=== PATIENT | female | born 1990 | race Caucasian/White ===

== ENCOUNTER 2017-05-21 19:04 | Emergency (ER) | payer MEDICAID ==
[~2017-05-21] VITALS: Ht 152.4 cm; Wt 65.5 kg
[~2017-05-21 19:04] MED LIST: BACTDS PO; PHEN-537 PO
[2017-05-21 19:09] VITALS: Ht 152.4 cm; Wt 65.5 kg
[2017-05-21] MEDS ORDERED: FLUORESCEIN STRIP RIGHT EYE ONE (20:30)
[2017-05-21] MEDS ORDERED: HYDROCODONE/APAP (5/325) TAB PO ONE (20:30)
[2017-05-21] MEDS ORDERED: TETRACAINE 0.5% 4 ML OPH RIGHT EYE SCH (20:30)
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
== END 2017-05-22 01:13 | disposition left against medical advice (07) ==
LOC: FTE 19:04 → E/R 05-22 01:13
DX: S05.91XA Unspecified injury of right eye and orbit, initial encounter (principal); X58.XXXA Exposure to other specified factors, initial encounter; Y92.9 Unspecified place or not applicable
CPT/HCPCS: 70480; Z7502; Z7610

== ENCOUNTER 2018-02-05 17:43 | Emergency (ER) | END 2018-02-05 22:36 | disposition home or self-care (01) ==

== ENCOUNTER 2018-06-01 10:05 | Emergency (ER) | END 2018-06-01 12:30 | disposition home or self-care (01) ==

== ENCOUNTER 2018-06-08 14:40 | Day surgery (SDC) | END 2018-06-08 18:40 | disposition home or self-care (01) ==

== ENCOUNTER 2019-02-03 14:15 | Emergency (ER) | payer OTHER ==
[~2019-02-03] VITALS: Ht 165.1 cm; Wt 71.4 kg
[~2019-02-03 14:15] MED LIST changes: -BACTDS PO; -PHEN-537 PO; +PREN-17 PO
[2019-02-03 14:18] VITALS: BP 112/56; PULSE 105; RESP 20; Ht 165.1 cm; Wt 71.4 kg
[2019-02-03] MEDS ORDERED: BEN25 PO (15:30)
[2019-02-03] MEDS ORDERED: ACET500C5 PO (15:30)
--- NOTE | 2019-02-03 15:37 | ERD ---
ER Documentation Chief Complaint Chief Complaint Complains of a cough x 3 days HPI 28-year-old female patient with no significant past medical history presents ED complaining of cough that started 3 days ago. She reports that she is currently 12 weeks . States that she started developing dry cough and rhinorrhea that started 3 days ago. Patient is up-to-date with her vaccinations. Denies any vaginal bleeding, vaginal discharge, urgency, frequency, hematuria, fever abdominal pain. ROS All systems reviewed and are negative except as per history of present illness. Medications Home Meds Active Scripts Acetaminophen* (Tylophen*) 500 Mg Capsule, 1 CAP PO Q6H PRN for PAIN AND OR ELEVATED TEMP, #20 CAP Prov:THAO DEWEY PA-C 02/03/19 Diphenhydramine Hcl* (Benadryl*) 25 Mg Cap, 25 MG PO Q6, #30 CAP Prov:THAO DEWEY PA-C 02/03/19 Reported Medications Vit No.78/Iron/FA (Prenatabs FA Tablet) 1 Each Tablet, 1 EACH PO DAILY, TAB 06/08/18 Allergies Allergies: Coded Allergies: No Known Allergy (Unverified , 06/08/18) PMhx/Soc History of Surgery: Yes (csection, d&C, apendectomy) Anesthesia Reaction: No Hx Neurological Disorder: No Hx Respiratory Disorders: No Hx Cardiac Disorders: No Hx Psychiatric Problems: No Hx Miscellaneous Medical Probl: No Hx Alcohol Use: No Hx Substance Use: No Hx Tobacco Use: No Smoking Status: Never smoker FmHx Family History: No diabetes, No coronary disease Physical Exam Vitals Vital Signs Date Temp Pulse Resp B/P (MAP) Pulse Ox O2 O2 Flow FiO2 Time Delivery Rate 02/03/19 98.8 105 20 112/56 97 14:18 (74) Physical Exam Const: Gam-xsn-pxkpumwwm, well-nourished. In no acute distress. Head: Atraumatic, normocephalic Eyes: Normal Conjunctiva without injection. No purulent discharge. PERRL. EOMI ENT: Normal external ear. Ear canal without erythema. Tympanic membrane pearly babin without effusion or bulging. Nasal canal clear with normal turbinates. Moist oropharynx without tonsillar exudates. Non-erythematous pharynx. Uvula midline. No drooling. No trismus. Neck: Full range of motion. No meningismus. No cervical lymphadenopathy. Resp: Clear to auscultation bilaterally. No wheezing, rhonchi, rales, or crackles. No accessory muscle use. No retractions. Cardio: Regular rate and rhythm. No murmurs, rubs or gallops. Abd: Soft, non tender, non distended. Normal bowel sounds. No palpable masses. No rebound tenderness. No guarding. Skin: No petechiae or rashes Back: No midline tenderness. No CVA tenderness. Ext: No cyanosis, or edema. Neur: Awake and alert. Psych: Normal Mood and Affect Procedures/MDM 28-year-old female patient with no significant past medical history presents to ED complaining of cough that started 3 days ago. Patient is afebrile and nontoxic-appearing. This patient presents to the ED with symptoms consistent with a viral acute upper respiratory infection. Patient's physical exam include lungs which were clear to auscultation and a normal pulse oximetry. There is a low suspicion for pneumonia, pneumothorax, mononucleosis, pulmonary embolism, epiglottitis, otitis media, otitis externa, viral/strep pharyngitis, sinusitis, myocarditis, pericarditis, endocarditis, peritonsillar abscess, mastoiditis, retropharyngeal abscess, meningitis, sepsis, acute abdomen or other emergent conditions. Fluids, rest, and symptomatic treatment are recommended for the management of patient's symptoms. Diagnosis: Cough Discharge medications: Tylenol, Benadryl Follow up with primary care physician in 1-2 days. Instructed patient to return to the ED sooner for any worsening symptoms. Patient's questions were answered. Patient is hemodynamically stable. Patient understood and agreed with discharge plan. Patient discharged stable. Disclaimer: Inadvertent spelling and grammatical errors are likely due to EHR/dictation software use and do not reflect on the overall quality of patient care. Also, please note that the electronic time recorded on this note does not necessarily reflect the actual time of the patient encounter. Departure Diagnosis: Primary Impression: Cough Condition: Stable Patient Instructions: Uri, Viral, No Abx (Adult) Referrals: COMMUNITY CLINICS YOU HAVE RECEIVED A MEDICAL SCREENING EXAM AND THE RESULTS INDICATE THAT YOU DO NOT HAVE A CONDITION THAT REQUIRES URGENT TREATMENT IN THE EMERGENCY DEPARTMENT. FURTHER EVALUATION AND TREATMENT OF YOUR CONDITION CAN WAIT UNTIL YOU ARE SEEN IN YOUR DOCTORS OFFICE WITHIN THE NEXT 1-2 DAYS. IT IS YOUR RESPONSIBILITY TO MAKE AN APPOINTMENT FOR FOLOW-UP CARE. IF YOU HAVE A PRIMARY DOCTOR --you should call your primary doctor and schedule an appointment IF YOU DO NOT HAVE A PRIMARY DOCTOR YOU CAN CALL OUR PHYSICIAN REFERRAL HOTLINE AT IF YOU CAN NOT AFFORD TO SEE A PHYSICIAN YOU CAN CHOSE FROM THE FOLLOWING [facility] [address] [facility] [address] [facility] [address] [facility] [address] [facility] [address] [facility]. [facility] [address] [facility]. [facility] YOU HAVE RECEIVED A MEDICAL SCREENING EXAM AND THE RESULTS INDICATE THAT YOU DO NOT HAVE A CONDITION THAT REQUIRES URGENT TREATMENT IN THE EMERGENCY DEPARTMENT. FURTHER EVALUATION AND TREATMENT OF YOUR CONDITION CAN WAIT UNTIL YOU ARE SEEN IN YOUR DOCTORS OFFICE WITHIN THE NEXT 1-2 DAYS. IT IS YOUR RESPONSIBILITY TO MAKE AN APPOINTMENT FOR FOLOW-UP CARE. IF YOU HAVE A PRIMARY DOCTOR --you should call your primary doctor and schedule and appointment IF YOU DO NOT HAVE A PRIMARY DOCTOR YOU CAN CALL OUR PHYSICIAN REFERRAL HOTLINE AT . IF YOU CAN NOT AFFORD TO SEE A PHYSICIAN YOU CAN CHOSE FROM THE FOLLOWING [facility]: [facility] [address] [place] [address] [facility] [address] [place] [address] [facility] + [facility] [address] [place] [address] [facility] Additional Instructions: Call your primary care doctor TOMORROW for an appointment during the next 2-3 days.See the doctor sooner or return here if your condition worsens before your appointment time. THAO DEWEY PA-C Feb 03, 2019 15:37
== END 2019-02-03 17:29 | disposition home or self-care (01) ==
LOC: FTE 14:15
DX: O26.891 Other specified pregnancy related conditions, first trimester (principal); R05 Cough; Z3A.12 12 weeks gestation of pregnancy
CPT/HCPCS: 99282

== ENCOUNTER 2019-06-24 12:02 | Inpatient (IN) | payer OTHER ==
[~2019-06-24] VITALS: Ht 154.9 cm; Wt 78.5 kg
[~2019-06-24 12:02] MED LIST changes: +ACET325T33 PO; +IBUP800T48 PO
[2019-06-24] MEDS ORDERED: LACTATED RINGER'S 1,000 ML IV SCH ×2 (12:09→19:00)
[2019-06-24] MEDS ORDERED: CEFAZOLIN 2 GM/50 ML (PMX) 50 ML IVPB SCH (12:30)
[2019-06-24] MEDS ORDERED: METHYLERGONOVINE 0.2 MG INJ IM PRN ×2 (12:30→19:00)
[2019-06-24] MEDS ORDERED: OXYTOCIN 30 UNITS/LR 500 ML IV PRN ×2 (12:30→19:00)
[2019-06-24] MEDS ORDERED: CARBOPROST 250 MCG INJ IM PRN ×2 (12:30→19:00)
[2019-06-24] MEDS ORDERED: MISOPROSTOL 200 MCG TAB PR PRN ×2 (12:30→19:00)
[2019-06-24 13:39] VITALS: Ht 154.9 cm; Wt 78.5 kg
[2019-06-24] MEDS ORDERED: ONDANSETRON 4 MG INJ ONE (15:14)
[2019-06-24] MEDS ORDERED: morphine SULFATE/PF (10 MG/10 ML) INJ ONE (15:14)
[2019-06-24] MEDS ORDERED: OXYTOCIN 10 UNIT INJ ONE ×3 (15:14→15:51)
[2019-06-24] MEDS ORDERED: PHENYLephrine 10 MG INJ ONE (15:34)
[2019-06-24] MEDS ORDERED: ACETAMINOPHEN 500 MG TAB PO STA (16:29)
[2019-06-24] MEDS ORDERED: KETOROLAC 30 MG INJ IV STA (16:29)
[2019-06-24] MEDS ORDERED: AZITHROMYCIN 500MG/NS (PMX) 250 ML IVPB ONE (16:30)
[2019-06-24] MEDS: OXYTOCIN 30 UNITS/LR 500 ML IV SCH (17:14)
[2019-06-24] MEDS ORDERED: NALOXONE (0.4 MG/ML) INJ IV PRN (17:30)
[2019-06-24] MEDS ORDERED: KETOROLAC 30 MG INJ IV PRN (17:30)
[2019-06-24] MEDS ORDERED: DIPHENHYDRAMINE 50 MG INJ IV PRN (17:30)
[2019-06-24] MEDS ORDERED: ONDANSETRON 4 MG INJ IV PRN (17:30)
[2019-06-24] MEDS ORDERED: morphine 2 MG INJ IV PRN (17:30)
[2019-06-24 18:45] VITALS: BP 70/40; PULSE 75; RESP 18
[2019-06-24 18:55] VITALS: BP 75/45; PULSE 91; RESP 18
[2019-06-24] MEDS ORDERED: LANOLIN HPA 1 PKT TOP PRN (19:00)
[2019-06-24] MEDS ORDERED: OXYCODONE/ACETAMINOPHEN (5/325) TAB PO PRN (19:00)
[2019-06-24] MEDS ORDERED: NA PHOSPHATE/BIPHOS 133 ML ENEMA PR PRN (19:00)
[2019-06-24 19:05] VITALS: BP 82/51; PULSE 95; RESP 18
[2019-06-24 19:30] VITALS: BP 93/49; PULSE 75; RESP 18
[2019-06-24 20:30] VITALS: BP 94/50; PULSE 90; RESP 19
[2019-06-24] MEDS: SENNA/DOCUSATE NA (8.6MG/50MG) TAB PO SCH (21:14)
[2019-06-24] MEDS: IBUPROFEN 800 MG TAB PO SCH (22:00)
[2019-06-24] MEDS: CEFAZOLIN 2 GM/50 ML (PMX) 50 ML IVPB SCH (22:09)
[2019-06-25 00:50] VITALS: BP 96/50; PULSE 63; RESP 18
[2019-06-25 04:50] VITALS: BP 92/51; PULSE 66; RESP 19
[2019-06-25] MEDS: IBUPROFEN 800 MG TAB PO SCH ×3 (06:00→21:18)
[2019-06-25] MEDS: CLINDAMYCIN 300 MG CAP PO SCH ×5 (06:01→23:41)
[2019-06-25] MEDS: CEFAZOLIN 2 GM/50 ML (PMX) 50 ML IVPB SCH ×2 (06:02→13:41)
[2019-06-25] MEDS: LACTATED RINGER'S 1,000 ML IV SCH ×3 (06:03→21:00)
[2019-06-25] MEDS: SENNA/DOCUSATE NA (8.6MG/50MG) TAB PO SCH ×2 (09:00→21:17)
[2019-06-25 09:06] VITALS: BP 95/46; PULSE 70; RESP 18
[2019-06-25] MEDS ORDERED: BISACODYL 10 MG SUPP PR ONE ×2 (10:30→21:30)
[2019-06-25 12:15] VITALS: BP 92/51; PULSE 76; RESP 18
[2019-06-25 16:50] VITALS: BP 98/52; PULSE 88; RESP 18
[2019-06-25] MEDS: HYDROCODONE/APAP (5/325) TAB PO PRN (17:31)
[2019-06-25 19:40] VITALS: BP 91/56; PULSE 87; RESP 18
[2019-06-26 03:17] VITALS: BP 106/51; PULSE 70; RESP 17
[2019-06-26] MEDS: CLINDAMYCIN 300 MG CAP PO SCH ×4 (05:42→23:51)
[2019-06-26] MEDS: IBUPROFEN 800 MG TAB PO SCH ×3 (05:43→22:03)
[2019-06-26 08:00] VITALS: BP 109/60; PULSE 69; RESP 18
[2019-06-26] MEDS: SENNA/DOCUSATE NA (8.6MG/50MG) TAB PO SCH ×2 (08:38→22:03)
[2019-06-26 15:46] VITALS: BP 105/70; PULSE 76; RESP 18
[2019-06-26] MEDS: HYDROCODONE/APAP (5/325) TAB PO PRN (18:11)
[2019-06-26 19:45] VITALS: BP 106/66; PULSE 77; RESP 18
[2019-06-27] MEDS ORDERED: ACETAMINOPHEN 325 MG TAB PO PRN (00:30)
[2019-06-27 03:37] VITALS: BP 100/72; PULSE 68; RESP 18
[2019-06-27] MEDS: CLINDAMYCIN 300 MG CAP PO SCH ×2 (05:39→12:00)
[2019-06-27] MEDS: IBUPROFEN 800 MG TAB PO SCH ×2 (05:39→13:32)
[2019-06-27 08:30] VITALS: BP 102/69; PULSE 70; RESP 17
[2019-06-27] MEDS ORDERED: DIPHTH/TET/ACEL PERTUSS (ADULT) 0.5 ML VIAL IM* ONE (09:00)
[2019-06-27] MEDS ORDERED: MEASLES,MUMPS,RUBELLA VACCINE INJ SC* ONE (09:00)
[2019-06-27] MEDS: SENNA/DOCUSATE NA (8.6MG/50MG) TAB PO SCH (09:21)
== END 2019-06-27 14:00 | disposition home or self-care (01) | DRG 788 ==
LOC: L-D 12:02 → MS1 18:40
PROVIDERS: ADMIT Obstetrics & Gynecology; ATTEND Obstetrics & Gynecology
PROC: 3E033VJ Introduction of Other Hormone into Peripheral Vein, Percutaneous Approach (ICD-10-PCS; 2019-06-24)
PROC: 10D00Z1 Extraction of Products of Conception, Low, Open Approach (ICD-10-PCS; principal; 2019-06-24 14:00)
DX: O65.5 Obstructed labor due to abnormality of maternal pelvic organs (principal); O99.214 Obesity complicating childbirth; O34.211 Maternal care for low transverse scar from previous cesarean delivery; Z3A.39 39 weeks gestation of pregnancy; Z37.0 Single live birth
CPT/HCPCS: 85025; 85610; 85730; 86592; 86850; 86900; 86901; 87340; 90715; 99464; J0456; J0690; J1885; J2274; J2370; J2405; J2590; J7120